=== PATIENT | female | born 1975 | race Hispanic/Latino ===

== ENCOUNTER 2024-12-11 06:54 | Day surgery (SDC) | payer OTHER ==
[~2024-12-11] VITALS: Ht 157.5 cm; Wt 104.3 kg
[~2024-12-11 06:54] MED LIST: BUPROPION150 MG PO; EQL IBUPROFEN200 MG PO; FIORICET PO; JOLESSA PO; MONONESSA OR; NEXIUM40 M1 OR; NO HOME MEDS; ROBAXIN-750750 MG PO; ULTRAM50 MG OR; ZITHROMAX500 MG PO; ZOFRAN ODT4 MG OR
[2024-12-11] MEDS ORDERED: FAMOTIDINE 10MG/ML 2ML SDV IV ONE (06:56)
[2024-12-11] MEDS ORDERED: LACTATED RINGER'S 1,000 ML IV ONE (06:56)
[2024-12-11 08:36] VITALS: BP 115/77
[2024-12-11] MEDS ORDERED: PROPOFOL 200 MG/20 ML VIAL IV ONE (09:50)
[2024-12-11] MEDS ORDERED: LIDOCAINE HCL 2% 2ML SDV IV ONE (09:50)
== END 2024-12-11 08:51 | disposition home or self-care (01) ==
LOC: ENDO 06:54 → ORM 08:00 → ENDO 08:00
PROVIDERS: ATTEND Surgery
DX: Z12.11 Encounter for screening for malignant neoplasm of colon (principal); K64.8 Other hemorrhoids; Z80.0 Family history of malignant neoplasm of digestive organs